=== PATIENT | female | born 1990 | race Caucasian/White ===

== ENCOUNTER 2017-10-05 16:38 | Emergency (ER) | payer SELFPAY ==
[~2017-10-05] VITALS: Ht 167.6 cm; Wt 77.3 kg
[2017-10-05 16:43] VITALS: BP 113/75
--- NOTE | 2017-10-05 16:51 | NUR ---
27 YO F BIB SELF W/ C/O RLQ PAIN, 10/21 THAT IS THROBBING AND SHARP, NON-RADIATING OF THE RUQ THAT BEGAN YESTERDAY MORNING. PT REPORTS N/V; DENIES DIARRHEA. PT REPORTS THAT HER LAST BM WAS THIS MORNING AND SHE DID NOT HAVE TO STRAIN. PT REPORTS THAT SHE HAS NOT BEEN EATING/DRINKING WELL. ABD IS SOFT, NON-TENDER. BOWEL SOUNDS ACTIVE X 4 QUADRANTS. PT REPORTS THAT SHE TOOK TYLENOL FOR THE PAIN. PT AAO X4, GCS 15, CMS INTACT, RR EVEN AND UNLABORED. ER MD NOTIFIED. PT NEEDS MET. SAFETY PRECAUTIONS IN PLACE. WILL CONTINUE TO MONITOR.
--- NOTE | 2017-10-05 17:51 | NUR ---
pt resting on hospital gurney at this time w/ vss, rr even and unlabored. safety precautions in place. will conitnue to monitor.
[2017-10-05] MEDS ORDERED: NACL 0.9% 1,000 ML IV SCH (17:59)
[2017-10-05] MEDS ORDERED: ONDANSETRON 4 MG/2 ML VIAL IVP ONE (18:00)
[2017-10-05] MEDS ORDERED: MORPHINE SULFATE 4 MG/ML SYR IVP ONE (18:00)
--- NOTE | 2017-10-05 18:09 | NUR ---
PT TO CT SCAN AT THIS TIME VIA WHEELCHAIR.
[2017-10-05 18:25] LABS: APPEARANCE,URINE CLEAR (CLEAR); BILIRUBIN,URINE NEGATIVE (NEGATIVE); BLOOD, URINE TRACE-I (NEGATIVE); COLOR,URINE YELLOW (YELLOW); LEUKOCYTE ESTERASE ,URINE NEGATIVE (NEGATIVE); NITRITE, URINE NEGATIVE (NEGATIVE); PH,URINE 5.5 (5.0-9.0); UGLUCOSE NEGATIVE (NEGATIVE)
[2017-10-05 18:44] LABS: BASOPHILS % (AUTO) 0.5 % (0.0-2.0); EOSINOPHILS # (AUTO) 0.2 K/uL (0-0.4); EOSINOPHILS % (AUTO) 1.9 % (0.0-4.0); HEMATOCRIT 34.2 % (36-48); HEMOGLOBIN 10.3 g/dL (12.0-16.0); LYMPHOCYTES # (AUTO) 1.4 K/uL (2.5-16.5); LYMPHOCYTES % (AUTO) 17.3 % (20.5-51.1); MEAN CORPUSCULAR HEMOGLOBIN 20 pg (27-31); MEAN CORPUSCULAR HGB CONC 30 g/dL (33-37); MEAN CORPUSCULAR VOLUME 65.1 fL (80-94); MONOCYTES # (AUTO) 0.4 K/uL (0.8-1.0); MONOCYTES % (AUTO) 4.9 % (1.7-9.3); NEUTROPHILS # (AUTO) 6.3 K/uL (1.8-7.7); NEUTROPHILS % (AUTO) 75.4 % (42.2-75.2); PLATELET COUNT (AUTO) 351 K/uL (140-450); RED BLOOD CELL COUNT(AUTO) 5.25 MIL/uL (4.20-5.40); RED CELL DISTRIBUTION WIDTH 18.3 % (11.6-13.7); WHITE BLOOD COUNT (AUTO) 8.4 K/uL (4.8-10.8)
[2017-10-05] MEDS ORDERED: diphenhydrAMINE 50 MG/ML VIAL IVP ONE (18:50)
[2017-10-05 18:54] LABS: ANION GAP 5.5 (8-16); CARBON DIOXIDE 26.6 mmol/L (21-32); CREATININE 0.7 mg/dL (0.6-1.3); POTASSIUM 4.1 mmol/L (3.5-5.1)
[2017-10-05 18:59] LABS: ALBUMIN 3.5 g/dL (3.4-5.0); TOTAL BILIRUBIN 0.4 mg/dL (0.0-1.0)
--- NOTE | 2017-10-05 19:02 | NUR ---
pt resting on hospital gurapex at this time w/ vss, rr even and unlabored, lungs clear. safety precautions in place. will continue to monitor.
[2017-10-05] MEDS ORDERED: traMADol 50 MG TAB PO ONE (19:05)
--- NOTE | 2017-10-05 19:14 | NUR ---
transfer of care at this time. report given to yesenia garza
[2017-10-05 19:15] LABS: RBC,URINE 0-5 (RARE) /HPF (0-5)
--- NOTE | 2017-10-05 19:43 | NUR ---
Patient discharged with v/s stable. Written and verbal after care instructions given and explained. Patient alert, oriented and verbalized understanding of instructions. Ambulatory with steady gait. All questions addressed prior to discharge. ID band removed. Patient advised to follow up with PMD. Rx of zofran odt, tramadol given. Patient educated on indication of medication including possible reaction and side effects. Opportunity to ask questions provided and answered.
[2017-10-05 19:48] VITALS: BP 122/69
== END 2017-10-05 19:43 | disposition home or self-care (01) ==
LOC: EDBD → MED 16:38
DX: I88.0 Nonspecific mesenteric lymphadenitis (principal); R11.2 Nausea with vomiting, unspecified; K21.9 Gastro-esophageal reflux disease without esophagitis; Z90.49 Acquired absence of other specified parts of digestive tract
CPT/HCPCS: 36415; 74176; 80053; 81001; 81025; 83690; 85025; 87086; 96361; 96374; 96375; 99285; J2270; J2405; J7030; J1200